=== PATIENT | male | born 2000 | race Caucasian/White ===

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

== ENCOUNTER → 2019-06-25 | Outpatient (CLI) | payer OTHER ==
[~2019-06-25] MED LIST: PSEU1TAB3 PO
--- NOTE | 2019-06-25 12:28 | REP ---
Clinical: Left shoulder pain . Technique: Internal rotation, external rotation, and Y view left shoulder . Findings: No acute fracture or dislocation. The acromioclavicular and glenohumeral joints are intact. No periarticular calcifications or degenerative changes are appreciated. Sub acromial space is normal. Surrounding soft tissues are unremarkable. Impression: Normal left shoulder radiographs. Electronically Signed by Kenneht Aguilar MD 06/25/2019 12:19 P
== END ==
LOC: M ADAMS 12:05
PROVIDERS: ATTEND Physician Assistant
DX: M25.512 Pain in left shoulder (principal)

== ENCOUNTER → 2020-01-01 | Outpatient (REF) | payer OTHER ==
[2020-01-01 19:49] LABS: BASO % 0.4 % (0.0-1.0); EOS # 0.1 10^3/uL (0.0-0.5); EOS % 0.9 % (0.0-3.0); HEMATOCRIT 46.9 % (42.0-52.0); HEMOGLOBIN 15.2 g/dl (13.5-17.5); LYMPH # 1.7 10^3/uL (1.5-5.0); LYMPH % 21.5 % (24.0-44.0); MEAN CORPUSCULAR HEMOGLOBIN 29.3 pg (27.0-33.0); MEAN CORPUSCULAR HGB CONC 32.4 g/dl (32.0-36.5); MEAN CORPUSCULAR VOLUME 90.5 fl (80.0-96.0); MONO # 0.4 10^3/uL (0.0-0.8); MONO % 4.8 % (0.0-5.0); NEUTROPHILS # 5.8 10^3/uL (1.5-8.5); NEUTROPHILS % 72.1 % (36.0-66.0); PLATELET COUNT, AUTOMATED 309 10^3/uL (150-450); RED BLOOD COUNT 5.18 10^6/uL (4.30-6.10)
[2020-01-01 20:25] LABS: ALBUMIN 4.3 GM/DL (3.2-5.2); ALT/SGPT 27 U/L (12-78); BILIRUBIN,TOTAL 0.2 MG/DL (0.2-1.0); BLOOD UREA NITROGEN 14 MG/DL (7-18); CALCIUM LEVEL 9.4 MG/DL (8.5-10.1); CARBON DIOXIDE LEVEL 30 MEQ/L (21-32); CHLORIDE LEVEL 103 MEQ/L (98-107); CHOLESTEROL LEVEL 184 MG/DL (<200); CREATININE FOR GFR 0.98 MG/DL (0.70-1.30); FREE T4 1.12 NG/DL (0.78-1.33); GLUCOSE, FASTING 104 MG/DL (70-100); HDL CHOLESTEROL 42 MG/DL (>40); LDL CHOLESTEROL 98 MG/DL (<100); NON-HDL-C 142 MG/DL; POTASSIUM SERUM 3.6 MEQ/L (3.5-5.1); SODIUM LEVEL 140 MEQ/L (136-145); TOTAL PROTEIN 7.5 GM/DL (6.4-8.2); TRIGLYCERIDES LEVEL 222 MG/DL (<150)
[2020-01-01 20:27] LABS: TESTOSTERONE 415 NG/DL (241-827); TOTAL 25(OH) VITAMIN D 17.6 NG/ML (30.0-100.0)
== END ==
LOC: M LABDRWAD 19:26
PROVIDERS: ATTEND Physician Assistant Medical
DX: R53.83 Other fatigue (principal); I10 Essential (primary) hypertension; Z13.220 Encounter for screening for lipoid disorders

== ENCOUNTER 2020-01-09 17:51 | Emergency (ER) | payer OTHER ==
[~2020-01-09] VITALS: Ht 182.9 cm; Wt 82.2 kg
[2020-01-09 17:52] VITALS: BP 136/60
[2020-01-09] MEDS ORDERED: EXCEDRIN (18:00)
[2020-01-09 19:22] LABS: INFLUENZA A AMPLIFICATION NEGATIVE (NEGATIVE); INFLUENZA B AMPLIFICATION POSITIVE (NEGATIVE)
[2020-01-09] MEDS ORDERED: VENTAER INH (19:24)
[2020-01-09] MEDS ORDERED: BENZ200C70 PO (19:24)
[2020-01-09] MEDS ORDERED: IBUP-1022 PO (19:24)
== END 2020-01-09 21:00 | disposition home or self-care (01) ==
LOC: M ED 17:51
DX: J10.1 Influenza due to other identified influenza virus with other respiratory manifestations (principal)

== ENCOUNTER 2020-01-13 21:45 | Emergency (ER) | payer OTHER ==
[~2020-01-13] VITALS: Ht 182.9 cm; Wt 80.3 kg
[~2020-01-13 21:45] MED LIST changes: +BENZ200C70 PO; +EXCEDRIN; +IBUP-1022 PO; +VENTAER INH
[2020-01-13 21:47] VITALS: BP 139/74
[2020-01-13] MEDS ORDERED: AUGM875T28 PO (22:52)
[2020-01-13] MEDS ORDERED: CIPRHCOTIC AD (22:52)
[2020-01-13] MEDS ORDERED: AUGMENTIN 875 MG TAB PO ONE (23:00)
[2020-01-13] MEDS ORDERED: CIPROFLOXACIN HC OTIC SUSPENSION AD ONE (23:00)
== END 2020-01-13 23:02 | disposition home or self-care (01) ==
LOC: M ED 21:45
DX: H66.011 Acute suppurative otitis media with spontaneous rupture of ear drum, right ear (principal)

== ENCOUNTER 2020-11-18 06:01 | Emergency (ER) | payer OTHER ==
[~2020-11-18] VITALS: Ht 182.9 cm; Wt 81.4 kg
[~2020-11-18 06:01] MED LIST changes: +AUGM875T28 PO; +CIPRHCOTIC AD
--- NOTE | 2020-11-18 07:18 | REPVR ---
PROCEDURE INFORMATION: Exam: XR Left Elbow Exam date and time: 11/18/2020 6:52 AM Age: 19 years old Clinical indication: Pain; Elbow; Left; Additional info: Trauma TECHNIQUE: Imaging protocol: XR Left elbow. Views: 3 or more views. COMPARISON: No relevant prior studies available. FINDINGS: Bones/joints: Normal. Soft tissues: Normal. IMPRESSION: No acute findings. Electronically signed by: Baltazar Hernandez On 11/18/2020 07:18:21 AM
--- NOTE | 2020-11-18 07:19 | REPVR ---
PROCEDURE INFORMATION: Exam: XR Thoracic Spine, 3 Views Exam date and time: 11/18/2020 6:52 AM Age: 19 years old Clinical indication: Pain in thoracic spine; Other: Fall injury; Additional info: Trauma, compression forces TECHNIQUE: Imaging protocol: XR of the thoracic spine, 3 views. COMPARISON: No relevant prior studies available. FINDINGS: Bones/joints: There is an S shaped scoliosis of the thoracic spine, convex to the left superiorly and convex to the right inferiorly. There is preservation of vertebral body height and disc space height. Soft tissues: Unremarkable. IMPRESSION: No acute thoracic. Electronically signed by: Baltazar Hernandez On 11/18/2020 07:19:31 AM
[2020-11-18] MEDS ORDERED: CYCL-707 PO (07:49)
[2020-11-18] MEDS ORDERED: NAPR-837 PO (07:49)
[2020-11-18 08:02] VITALS: BP 134/72
== END 2020-11-18 08:03 | disposition home or self-care (01) ==
LOC: M ED 06:01
DX: S23.3XXA Sprain of ligaments of thoracic spine, initial encounter (principal); S53.402A Unspecified sprain of left elbow, initial encounter; W00.1XXA Fall from stairs and steps due to ice and snow, initial encounter; Y92.9 Unspecified place or not applicable; Y93.9 Activity, unspecified; Y99.9 Unspecified external cause status

== ENCOUNTER 2020-12-19 23:14 | Emergency (ER) | payer OTHER ==
[~2020-12-19] VITALS: Ht 182.9 cm; Wt 79.7 kg
[~2020-12-19 23:14] MED LIST changes: +CYCL-707 PO; +NAPR-837 PO
[2020-12-19] MEDS ORDERED: KP F1200 PO (23:20)
--- OUTSIDE RECORDS SUMMARY | 2020-12-19 23:22 | CCD ---
Author Author [facility] Organization [facility] Address Unknown Phone Unavailable Care Team Providers Care Communication Lecturer Name Role Phone PETROFF, SAMEER PA Unavailable Unavailable PETROFF, SAMEER PA Unavailable Unavailable PETROFF, SAMEER PA Unavailable Unavailable PETROFF, SAMEER PA Unavailable Unavailable PETROFF, SAMEER PA Unavailable Unavailable PETROFF, SAMEER PA Unavailable Unavailable PETROFF, SAMEER PA Unavailable Unavailable PETROFF, SAMEER PA Unavailable Unavailable RING, K CHRISTAL PA Unavailable Unavailable RING, K CHRISTAL PA Unavailable Unavailable RING, K CHRISTAL PA Unavailable Unavailable RING, K CHRISTAL PA Unavailable Unavailable RING, K CHRISTAL PA Unavailable Unavailable RING, K CHRISTAL PA Unavailable Unavailable RING, K CHRISTAL PA Unavailable Unavailable RING, K CHRISTAL PA Unavailable Unavailable RING, K CHRISTAL PA Unavailable Unavailable RING, K CHRISTAL PA Unavailable Unavailable RING, K CHRISTAL PA Unavailable Unavailable RING, K CHRISTAL PA Unavailable Unavailable RING, K CHRISTAL PA Unavailable Unavailable RING, K CHRISTAL PA Unavailable Unavailable RING, K CHRISTAL PA Unavailable Unavailable RING, K CHRISTAL PA Unavailable Unavailable RING, K CHRISTAL PA Unavailable Unavailable RING, K CHRISTAL PA Unavailable Unavailable RING, K CHRISTAL PA Unavailable Unavailable RING, K CHRISTAL PA Unavailable Unavailable Re-disclosure Warning The records that you are about to access may contain information from federally-assisted alcohol or drug abuse programs. If such information is present, then the following federally mandated warning applies: This information has been disclosed to you from records protected by federal confidentiality rules (42 CFR part 2). The federal rules prohibit you from making any further disclosure of this information unless further disclosure is expressly permitted by the written consent of the person to whom it pertains or as otherwise permitted by 42 CFR part 2. A general authorization for the release of medical or other information is NOT sufficient for this purpose. The Federal rules restrict any use of the information to criminally investigate or prosecute any alcohol or drug abuse patient.The records that you are about to access may contain highly sensitive health information, the redisclosure of which is protected by Article 27-F of the [facility] Public Health law. If you continue you may have access to information: Regarding HIV / AIDS; Provided by facilities licensed or operated by the [facility] Office of Mental Health; or Provided by the [facility] Office for People With Developmental Disabilities. If such information is present, then the following [facility] mandated warning applies: This information has been disclosed to you from confidential records which are protected by state law. State law prohibits you from making any further disclosure of this information without the specific written consent of the person to whom it pertains, or as otherwise permitted by law. Any unauthorized further disclosure in violation of state law may result in a fine or custodial sentence or both. A general authorization for the release of medical or other information is NOT sufficient authorization for further disc losure. Family History Family Member Name Family Member Gender Family Member Status Date o f Status Description Data Source(s) Unknown Unknown Problem [facility] ([facility]) Encounters Encounter Providers Location Date Indications Data Source(s ) Emergency Attender: SAMEER DIOP 2019 04:10:00 PM [facility] 01/26/2020 04:13:00 PM [facility] Patient discharged. Outpatient Attender: CHRISTAL Holguin 10/29/2019 02:15:00 PM EST [facility] ([facility]) Medications Medication Brand Name Start Date Product Form Dose Route Admi nistrative Instructions Pharmacy Instructions Status Indications Reaction Description Data Source(s) Cyclobenzaprine hydrochloride 10 MG Oral Tablet CYCLOBENZAPR INE HCL 11/18/2020 12:00:00 AM EST tablet 14 TAKE ONE TABLET BY MOUTH EVERY EVENING FOR MUSCLE SPASMS TAKE ONE TABLET BY MOUTH EVERY EVENING FOR MUSCLE SPAS MS SOLD: 11/18/2020 [facility] 500 mg 11/18/2020 12:00:00 AM EST tablet 30 TAKE ONE TABLET BY MOUTH TWICE A DAY WITH FOOD TAKE ONE TABLET BY MOUTH TWICE A DAY WITH FOOD SOLD: 11/18/2020 [facility] 875-125 mg 01/14/2020 12:00:00 AM EST tablet 14 TAKE ONE TABLET BY MOUTH TWICE A DAY TAKE ONE TABLET BY MOUTH TWICE A DAY SOLD: 01/14/2020 [facility] 600 mg 01/09/2020 12:00:00 AM EST tablet 30 TAKE ONE TABLET BY MOUTH EVERY 6 HOURS NEEDED FOR PAIN TAKE ONE TABLET BY MOUTH EVERY 6 HOURS A S NEEDED FOR PAIN SOLD: 01/09/2020 [facility] 90 mcg/actuation 01/09/2020 12:00:00 AM EST HFA aerosol inha ler 18 INHALE TWO PUFFS BY MOUTH EVERY 4 TO 6 HOURS NEEDED FOR WHEEZING INHALE TWO PUFFS BY MOUTH EVERY 4 TO 6 HOURS NEEDED FOR WHEEZING SOLD: 01/09/2020 [facility] benzonatate 200 MG Oral Capsule BENZONATATE 01/09/2020 12:00:00 AM EST capsule 30 TAKE ONE CAPSULE BY MOUTH THREE TIMES A DAY NEEDED FOR COUGH TAKE ONE CAPSULE BY MOUTH THREE TIMES A DAY NEEDED FOR COUGH SOLD: 01/09/2020 [facility] Insurance Providers Payer name Policy type / Coverage type Policy ID Covered alliance party ID Covered alliance party's relationship to holliday Policy Holliday Plan Information [facility] [id number] SP [id number] [facility] O [id number] S [id number] [employer] [id number] SP [id number] [facility] [id number] CHILD [id number] [facility] Commercial [id number] Self [id number] [facility] Commercial [id number] Self [id number] [facility] Commercial [id number] Self [id number] [facility] Commercial [id number] Self [id number] [place] [facility] Commercial [id number] [facility] Commercial [id number] [employer] [facility] [id number] SP [id number] [facility] [id number] FO2 [id number] MEDICAID [id number] SP [id number] MEDICAID [id number] SP [id number] MEDICAID [id number] SP [id number] HMO BLUE [id number] SELF PAY UNAVAILABLE UNAVAILA BLE Usp [facility] Commercial Self [employer] Commercial Family Depend ent Family Health Plan Commercial [employer] Commercial Family Depend ent HEALTH[employer]/ AD O [id number] C [id number] [facility] O [id number] C [id number] Self Pay P none S none Sliding Fee Scale S None S No ne Problems, Conditions, and Diagnoses Code Display Name Description Problem Type Effective Dates Data Source(s) Y92.[address] or not applicable UNSPECIFIED PL[address] OR NOT APPLICABLE Diagnosis 01/26/2020 04:10:00 PM [facility] Y99.8 Other external cause status OTHER EXTERNAL CAUSE STATU S Diagnosis 01/26/2020 04:10:00 PM [facility] Y93.89 Activity, other specified ACTIVITY, OTHER SPECIFIED Di agnosis 01/26/2020 04:10:00 PM [facility] T15.12XA Foreign body in conjunctival sac, left e ye, initial encounter FOREIGN BODY IN CONJUNCTIVAL SAC, LEFT EYE, INIT E Diagnosis 01/26/2020 04:10: 00 PM [facility] T15.92XA Foreign body on external eye , part unspecified, left eye, initial encounter FOREIGN BODY ON EXTERNAL EYE, PART UNSP, LEFT EYE, INIT Diag nosis 01/26/2020 04:10:00 PM [facility] Surgeries/Procedures Procedure Description Date Indications Data Source(s) ECG ROUTINE ECG W/LEAST 12 LDS W/I&R 10/29/2019 12:00: 00 AM EST [facility] ([facility]) Results ID Date Data Source [id number] 01/26/2020 06:18:00 PM [facility] Patient: CARRILLO LU R eport - Physicians/[facility].VisitID: [id number] [place] [address] [phone], MRegistration Date/Time: 01/26/2020 15:26 Weight:77.1 kg (S). Height/Length:72 inches (S). BMI:23.1 FAMILY HISTORYPaternal grandfather: Cancer, Diabetes. INSTRUCTIONSYour Current Medications: .No home medication. (Electronically signed by Smaeer Humphrey P.A. 01/26/2020 18:00) Name Value Range Interpretation Code Description Data Shamika rce(s) Supporting Document(s) Procedure Vital Signs ID Date Data Source UNK Name Value Range Interpretation Code Description Data Source(s) Body mass index (BMI) [Ratio] 24.4 kg/m2 24.4 k g/m2 [facility] ([facility]) Body height 72 [in_i] 72 [in_i] [facility] ([facility], [facility]) 6'0" Body weight 180.00 [lb_av] 180.00 [lb_av] [facility] ([facility]) Body temperature 98.7 [degF] 98.7 [degF] [facility] ([facility]) Oxygen saturation in Arterial blood by Pulse oximetry 97 % 97 % [facility] ([facility]) Respiratory rate 18 /min 18 /min [facility] ( [facility]) Heart rate 82 /min 82 /min [facility] ([facility], [facility]) Diastolic blood pressure 72 mm[Hg] 72 mm[Hg] [facility] ([facility]) Systolic blood pressure 142 mm[Hg] 142 mm[Hg] [facility] ([facility])
[2020-12-20 00:49] LABS: HEMATOCRIT 47.8 % (42.0-52.0); MEAN CORPUSCULAR HEMOGLOBIN 29.9 pg (27.0-33.0); MEAN CORPUSCULAR HGB CONC 33.5 g/dl (32.0-36.5); MEAN CORPUSCULAR VOLUME 89.3 fl (80.0-96.0); PLATELET COUNT, AUTOMATED 336 10^3/uL (150-450); RED BLOOD COUNT 5.35 10^6/uL (4.30-6.10); WHITE BLOOD COUNT 6.5 10^3/uL (4.0-10.0)
[2020-12-20 01:10] LABS: AMPHETAMINES LEVEL URINE NEGATIVE (NEGATIVE); BARBITURATES URINE NEGATIVE (NEGATIVE); BENZODIAZEPINES URINE NEGATIVE (NEGATIVE); CANNABINOIDS URINE POSITIVE (NEGATIVE); COCAINE METABOLITE URINE NEGATIVE (NEGATIVE); METHADONE URINE NEGATIVE (NEGATIVE); OPIATES URINE NEGATIVE (NEGATIVE); PHENCYCLIDINE URINE NEGATIVE (NEGATIVE)
[2020-12-20 01:18] LABS: ALBUMIN 4.8 GM/DL (3.2-5.2); ALT/SGPT 25 U/L (12-78); BILIRUBIN,DIRECT 0.1 MG/DL (0.0-0.2); BILIRUBIN,TOTAL 0.5 MG/DL (0.2-1.0); BLOOD UREA NITROGEN 12 MG/DL (7-18); CARBON DIOXIDE LEVEL 32 MEQ/L (21-32); CHLORIDE LEVEL 102 MEQ/L (98-107); ETHYL ALCOHOL (ETHANOL) 0.027 % (0.000-0.010); GLUCOSE, FASTING 90 MG/DL (70-100); SALICYLATE LEVEL 3.5 MG/DL (5.0-30.0); SODIUM LEVEL 138 MEQ/L (136-145); THYROID STIMULATING HORMONE 0.603 uIU/ML (0.463-3.98); TOTAL PROTEIN 8.5 GM/DL (6.4-8.2)
[2020-12-20 01:19] LABS: ACETAMINOPHEN LEVEL < 2.0 UG/ML (10.0-30.0)
--- OUTSIDE RECORDS SUMMARY | 2020-12-20 01:46 | CCD ---
Author Author [facility] Organization [facility] Address Unknown Phone Unavailable Care Team Providers Care [employer] Supervisor Name Role Phone PETROFF, SAMEER PA Unavailable [...] is protected by Article 27-F of the [facility] Public Health law. If you continue you may have access to information: Regarding HIV / AIDS; Provided by facilities licensed or operated by the [facility] Office of Mental Health; or Provided by the [facility] Office for People With Developmental Disabilities. If such information is present, then the following [facility] mandated warning applies: This information has [...] law may result in a fine or fdc sentence or both. A general authorization for [...] Emergency Attender: SAMEER DIOP 2019 04:10:00 PM [facility] 01/26/2020 04:13:00 PM [facility] Patient discharged. Outpatient Attender: CHRISTAL Holguin 10/29/2019 02:15:00 PM EST [facility] ([facility]) Medications Medication Brand [...] relationship to holliday Policy Holliday Plan Information [facility] [id number] SP [id number] [facility] O [id number] S 0001 [id number] [facility] [id number] SP [id number] [facility] [id number] CHILD [id number] [facility] Commercial [id number] Self [id number] [facility] Commercial [id number] Self [id number] [facility] Commercial [id number] Self [id number] [facility] Commercial [id number] Self [id number] [place] [id number] [facility] [id number] [facility] [id number] SP [id number] [facility] [facility] [id number] FO2 [id number] MEDICAID [id number] SP [id number] MEDICAID [id number] SP [id number] MEDICAID [id number] SP [id number] HMO BLUE [id number] GF [id number] SELF PAY UNAVAILABLE UNAVAILA BLE Usp [facility] Commercial Self [employer] Commercial Family Depend ent Family Health Plan Commercial [employer] Commercial Family Depend ent [employer]ALTH[employer]/ AD O [id number] C [id number] [facility] O [id number] C [id number] Self Pay P none S none Sliding Fee Scale S None S No ne Problems, Conditions, and Diagnoses Code Display Name Description Problem Type Effective Dates Data Source(s) Y92.[address] or not applicable UNSPECIFIED PL[address] OR NOT APPLICABLE Diagnosis 01/26/2020 04:10:00 PM [facility] Y99.8 Other external cause status OTHER EXTERNAL CAUSE STATU S Diagnosis 01/26/2020 04:10:00 PM [facility] Y93.89 Activity, other specified ACTIVITY, OTHER SPECIFIED Di agnosis 01/26/2020 04:10:00 PM [facility] T15.12XA Foreign body in conjunctival sac, left e ye, initial encounter FOREIGN BODY IN CONJUNCTIVAL SAC, LEFT EYE, INIT E Diagnosis 01/26/2020 04:10: 00 PM [facility] T15.92XA Foreign body on external eye , part unspecified, left eye, initial encounter FOREIGN BODY ON EXTERNAL EYE, PART UNSP, LEFT EYE, INIT Diag nosis 01/26/2020 04:10:00 PM [facility] Surgeries/Procedures Procedure Description Date Indications Data Source(s) ECG ROUTINE ECG W/LEAST 12 LDS W/I&R 10/29/2019 12:00: 00 AM EST [facility] ([facility]) Results ID Date Data Source [id number] 01/26/2020 06:18:00 PM [facility] Patient: CARRILLO LU R eport - [facility].VisitID: [id number] [place] [address] [phone], MRegistration Date/Time: 01/26/2020 15:26 Weight:77.1 kg (S). Height/Length:72 inches (S). BMI:23.1 FAMILY HISTORYPaternal grandfather: Cancer, Diabetes. INSTRUCTIONSYour Current Medications: .No home medication. (Electronically signed by Sameer Humphrey P.A. 01/26/2020 18:00) Name Value Range Interpretation Code Description Data Shamika rce(s) Supporting Document(s) Procedure Vital Signs ID Date Data Source UNK Name Value Range Interpretation Code Description Data Source(s) Body mass index (BMI) [Ratio] 24.4 kg/m2 24.4 k g/m2 [facility] ([facility]) Body height 72 [in_i] 72 [in_i] [facility] ([facility], [facility]) 6'0" Body weight 180.00 [lb_av] 180.00 [lb_av] [facility] ([facility]) Body temperature 98.7 [degF] 98.7 [degF] [facility] ([facility]) Oxygen saturation in Arterial blood by Pulse oximetry 97 % 97 % [facility] ([facility]) Respiratory rate 18 /min 18 /min [facility]) Heart rate 82 /min 82 /min [facility] ([facility], [facility]) Diastolic blood pressure 72 mm[Hg] 72 mm[Hg] [facility]) Systolic blood pressure 142 mm[Hg] 142 mm[Hg] [facility])
[2020-12-20 04:58] LABS: RSV AMPLIFICATION NEGATIVE (NEGATIVE)
--- NOTE | 2020-12-20 07:08 | ECGEPIP ---
[facility] - ED Test Date: 2020-12-20 Pat Name: CARRILLO LU Department: Room: - Gender: Male Medicaid Plan Compliance Director: ty : 2000 Requested By: YAMILEX Velasquez Order Number: [id number] Reading MD: Lalo Higgins Measurements Intervals [place] Rate: 59 P: 4 HI: 180 QRS: 49 QRSD: 102 T: 12 QT: 393 QTc: 392 Interpretive Statements SINUS BRADYCARDIA INCOMPLETE RIGHT BUNDLE BRANCH BLOCK NSTTW ABNORMALITY(S) NO PRIORS FOR COMPARISON Electronically Signed on 12-20-2020 7:08:01 EST by Lalo Higgins
[2020-12-20 10:42] VITALS: BP 143/81
[2020-12-21] MEDS ORDERED: EXCETAB33 PO (00:02)
== END 2020-12-20 14:03 ==
LOC: M ED 23:14
DX: R45.851 Suicidal ideations (principal); R00.1 Bradycardia, unspecified; I45.19 Other right bundle-branch block; F17.200 Nicotine dependence, unspecified, uncomplicated; F12.10 Cannabis abuse, uncomplicated; Z79.899 Other long term (current) drug therapy
CPT/HCPCS: 36415; 80048; 80076; 80307; 84443; 85027; 87631; 93005; 99284; G0480

== ENCOUNTER 2020-12-20 21:41 | Inpatient (IN) | payer OTHER ==
[~2020-12-20] VITALS: Ht 182.9 cm; Wt 75.7 kg
[~2020-12-20 21:41] MED LIST changes: +KP F1200 PO
--- OUTSIDE RECORDS SUMMARY | 2020-12-20 21:45 | CCD ---
Author Author [facility] Organization [facility] Address Unknown Phone Unavailable Care Team Providers Care Leather Cutter Name Role Phone PETROFF, SAMEER PA Unavailable [...] Unavailable RING, K CHRISTAL PA Unavailable Unavailable SYSTEM IN, NOT IN PROVIDER Unavailable Unavailable AGATA, S TANYA MD Unavailable Unavailable AGATA, S TANYA MD Unavailable Unavailable AGATA, S TANYA MD Unavailable Unavailable AGATA, S TANYA MD Unavailable Unavailable AGATA, S TANYA MD Unavailable Unavailable AGATA, S TANYA MD Unavailable Unavailable AGATA, S TANYA MD Unavailable Unavailable AGATA, S TANYA MD Unavailable Unavailable AGATA, S TANYA MD Unavailable Unavailable AGATA, S TANYA MD Unavailable Unavailable AGAAT, S TANYA MD Unavailable Unavailable AGATA, S TANYA MD Unavailable Unavailable AGATA, S TANYA MD Unavailable Unavailable AGATA, S TANYA MD Unavailable Unavailable AGATA, S TANYA MD Unavailable Unavailable AGATA, S TANYA MD Unavailable Unavailable AGATA, S TANYA MD Unavailable Unavailable AGATA, S TANYA MD Unavailable Unavailable AGATA, S TANYA MD Unavailable Unavailable Re-disclosure Warning The records that [...] is protected by Article 27-F of the [facility] Public Health law. If you continue you may have access to information: Regarding HIV / AIDS; Provided by facilities licensed or operated by the [facility] Office of Mental Health; or Provided by the [facility] Office for People With Developmental Disabilities. If such information is present, then the following [facility] mandated warning applies: This information has [...] law may result in a fine or residential sentence or both. A general authorization for the release of medical or other information is NOT sufficient authorization for further disc losure. Family History Family Member Name Family Member Gender Family Member Status Date o f Status Description Data Source(s) Unknown Unknown Problem MEDENT ([facility]) Encounters Encounter Providers Location Date Indications Data Source(s ) Outpatient Attender: TANYA PARMAR MDAdmitt er: TANYA PARMAR MDReferrer: PROVIDER SYSTEM IN 12/20/2020 10:31:00 AM EST SI, depression [facility] SI, depression Emergency Attender: SAMEER DIOP 2019 04:10:00 PM EST - 01/26/2020 04:13:00 PM [facility] Patient discharged. Outpatient Attender: CHRISTAL Holguin 10/29/2019 02:15:00 PM EST MEDENT ([facility]) Medications Medication Brand Name Start Date Product [...] type / Coverage type Policy ID Covered constitution party ID Covered constitution party's relationship to holliday Policy Holliday Plan Information [facility] [id number] SP [id number] [facility] PL[facility] U [id number] Se lf [id number] [facility] O [id number] S 0001 [id number] [facility] [id number] SP [id number] [facility] [id number] CHILD [id number] [facility] [id number] Self [id number] [facility] Commercial [id number] Self [id number] [facility] Commercial [id number] Self [id number] [facility] Commercial [id number] Self [id number] [employer] [id number] [employer] [id number] [facility] [id number] SP [id number] [facility] [facility] [id number] FO2 [id number] MEDICAID [id number] SP [id number] MEDICAID [id number] SP [id number] MEDICAID [id number] SP [id number] O BLUE [id number] GF [id number] SELF PAY UNAVAILABLE UNAVAILA BLE [place] [employer] Self [employer] Commercial Family Depend ent [facility] Health Plan Commercial [employer] Commercial Family Depend ent [employer]ALTH[employer]/ AD O [id number] C [id number] [employer] O [id number] C [id number] Self Pay P none S none Sliding Fee Scale S None S No ne Problems, Conditions, and Diagnoses Code Display Name Description Problem Type Effective Dates Data Source(s) SI, depression SI, depression Diagnosis 12/20/2020 10:31: 00 AM [facility] Y92.[address] or not applicable UNSPECIFIED PLACE OR NOT APPLICABLE Diagnosis 01/26/2020 04:10:00 PM [facility] Y99.8 Other external cause status OTHER EXTERNAL CAUSE STATU S Diagnosis 01/26/2020 04:10:00 PM [facility] Y93.89 Activity, other specified ACTIVITY, OTHER SPECIFIED Di agnosis 01/26/2020 04:10:00 PM [facility] T15.12XA Foreign body in conjunctival sac, left e ye, initial encounter FOREIGN BODY IN CONJUNCTIVAL SAC, LEFT EYE, INIT E Diagnosis 01/26/2020 04:10: 00 PM [facility] T15.92XA Foreign body on external eye , part unspecified, left eye, initial encounter FOREIGN BODY ON EXTERNAL EYE, PART UNSP, LEFT EYE, INIT Diag nosis 01/26/2020 04:10:00 PM [facility] Surgeries/Procedures Procedure Description Date Indications Data Source(s) ECG ROUTINE ECG W/LEAST 12 LDS W/I&R 10/29/2019 12:00: 00 AM EST MEDENT ([facility]) Results ID Date Data Source [id number] 01/26/2020 06:18:00 PM [facility] l Patient: CARRILLO LU Anton Pryor eport - [facility]icians[facility].VisitID: [id number] [place] [address] [phone], MRegistration Date/Time: 01/26/2020 15:26 Weight:77.1 kg (S). [...] [Ratio] 24.4 kg/m2 24.4 k g/m2 MEDENT ([facility]) Body height 72 [in_i] 72 [in_i] MEDENT ([facility]) 6'0" Body weight 180.00 [lb_av] 180.00 [lb_av] MEDEN T ([facility], [facility]) Body temperature 98.7 [degF] 98.7 [degF] [facility]) Oxygen saturation in Arterial blood by Pulse oximetry 97 % 97 % [facility] ([facility], [facility]) Respiratory rate 18 /min 18 /min [facility] ( [facility], [facility]) Heart rate 82 /min 82 /min [facility] ([facility]) Diastolic blood pressure 72 mm[Hg] 72 mm[Hg] [facility] ([facility]) Systolic blood pressure 142 mm[Hg] 142 mm[Hg] [facility]) ID Date Data Source [id number] 12/20/2020 05:01:15 PM [facility] Hospital Name Value Range Interpretation Code Description Data Source(s) TRANSFER FROM [facility]
[2020-12-20] MEDS ORDERED: IPRATROPIUM 0.5MG/ALBUTEROL 2.5MG INH SOL UD 3ML (DUONEB) NEB ONE (22:15)
[2020-12-20 22:37] LABS: HEMATOCRIT 46.1 % (42.0-52.0); HEMOGLOBIN 15.2 g/dl (13.5-17.5); MEAN CORPUSCULAR HEMOGLOBIN 29.5 pg (27.0-33.0); MEAN CORPUSCULAR VOLUME 89.3 fl (80.0-96.0); PLATELET COUNT, AUTOMATED 318 10^3/uL (150-450); RED BLOOD COUNT 5.16 10^6/uL (4.30-6.10); WHITE BLOOD COUNT 14.6 10^3/uL (4.0-10.0)
--- OUTSIDE RECORDS SUMMARY | 2020-12-20 22:48 | CCD ---
Author Author [facility] Organization [facility] Address Unknown Phone Unavailable Care Team Providers Care Hemstitching Machine Operator Name Role Phone PETROFF, SAMEER PA Unavailable [...] is protected by Article 27-F of the [facility] Public Health law. If you continue you may have access to information: Regarding HIV / AIDS; Provided by facilities licensed or operated by the [facility] Office of Mental Health; or Provided by the [facility] Office for People With Developmental Disabilities. If such information is present, then the following [facility] mandated warning applies: This information has been [...] law may result in a fine or skilled nursing sentence or both. A general authorization for the release of medical or other information is NOT sufficient authorization for further disc losure. Family History Family Member Name Family Member Gender Family Member Status Date o f Status Description Data Source(s) Unknown Unknown Problem MEDENT ([facility]) Encounters Encounter Providers Location Date Indications Data Source(s ) Outpatient Attender: TANYA PARMAR MDAdmitt er: TANYA PARMAR MDReferrer: PROVIDER SYSTEM IN 12/20/2020 10:31:00 AM EST SI, depression [facility] SI, depression Emergency Attender: SAMEER DIOP 2019 04:10:00 PM EST - 01/26/2020 04:13:00 PM [facility] Patient discharged. Outpatient Attender: CHRISTAL Holguin 10/29/2019 02:15:00 PM EST MEDENT ([facility]) Medications Medication Brand Name Start Date [...] type / Coverage type Policy ID Covered green party ID Covered green party's relationship to holliday Policy Holliday Plan Information [facility] [id number] SP [id number] [facility] U [id number] Se lf [id number] [facility] O [id number] S 0001 [id number] [facility] [id number] SP [id number] [facility] [id number] CHILD [id number] [facility] Commercial [id number] Self [id number] [facility] Commercial [id number] Self [id number] [facility] Commercial [id number] Self [id number] [facility] Commercial [id number] Self [id number] [employer] [id number] [employer] [id number] [facility] [id number] SP [id number] [facility] [id number] FO2 [id number] MEDICAID [id number] SP [id number] MEDICAID [id number] SP [id number] MEDICAID [id number] SP [id number] O BLUE [id number] GF [id number] SELF PAY UNAVAILABLE UNAVAILA BLE [place] [employer] Self [employer] Commercial Family Depend ent [facility] Health Plan Commercial [employer] Commercial Family Depend ent [employer]/ AD O [id number] C [id number] [facility] O [id number] C [id number] Self Pay P none S none Sliding Fee Scale S None S No ne Problems, Conditions, and Diagnoses Code Display Name Description Problem Type Effective Dates Data Source(s) SI, depression SI, depression Diagnosis 12/20/2020 10:31: 00 AM [facility] Y92.[address] or not applicable UNSPECIFIED PLACE OR NOT APPLICABLE Diagnosis 01/26/2020 04:10:00 PM [facility] Y99.8 Other external cause status OTHER EXTERNAL CAUSE STATU S Diagnosis 01/26/2020 04:10:00 PM [facility] Y93.89 Activity, other specified ACTIVITY, OTHER SPECIFIED Di agnosis 01/26/2020 04:10:00 PM [facility] T15.12XA Foreign body in conjunctival sac, left e ye, initial encounter FOREIGN BODY IN CONJUNCTIVAL SAC, LEFT EYE, INIT E Diagnosis 01/26/2020 04:10: 00 PM [facility] T15.92XA Foreign body on external eye , part unspecified, left eye, initial encounter FOREIGN BODY ON EXTERNAL EYE, PART UNSP, LEFT EYE, INIT Diag nosis 01/26/2020 04:10:00 PM [facility] Surgeries/Procedures Procedure Description Date Indications Data Source(s) ECG ROUTINE ECG W/LEAST 12 LDS W/I&R 10/29/2019 12:00: 00 AM EST MEDENT ([facility], [facility]) Results ID Date Data Source [id number] 01/26/2020 06:18:00 PM [facility] l Patient: CARRILLO LU Anton Pryor eport - [facility].VisitID: [id number] [place] [address] [phone], MRegistration Date/Time: 01/26/2020 15:26 Weight:77.1 kg (S). [...] [Ratio] 24.4 kg/m2 24.4 k g/m2 MEDENT ([facility], [facility]) Body height 72 [in_i] 72 [in_i] MEDENT ([facility], [facility]) 6'0" Body weight 180.00 [lb_av] 180.00 [lb_av] MEDEN T ([facility], [facility]) Body temperature 98.7 [degF] 98.7 [degF] [facility] Oxygen saturation in Arterial blood by Pulse oximetry 97 % 97 % [facility] ([facility], [facility]) Respiratory rate 18 /min 18 /min [facility] ( [facility], [facility]) Heart rate 82 /min 82 /min [facility] ([facility], [facility]) Diastolic blood pressure 72 mm[Hg] 72 mm[Hg] [facility] ([facility], [facility]) Systolic blood pressure 142 mm[Hg] 142 mm[Hg] [facility]) ID Date Data Source [id number] 12/20/2020 05:01:15 PM [facility] Hospital Name Value Range Interpretation Code Description Data Source(s) TRANSFER FROM [facility]
[2020-12-20 23:02] LABS: AMPHETAMINES LEVEL URINE NEGATIVE (NEGATIVE); BARBITURATES URINE NEGATIVE (NEGATIVE); BENZODIAZEPINES URINE NEGATIVE (NEGATIVE); CANNABINOIDS URINE POSITIVE (NEGATIVE); COCAINE METABOLITE URINE NEGATIVE (NEGATIVE); METHADONE URINE NEGATIVE (NEGATIVE); OPIATES URINE NEGATIVE (NEGATIVE); PHENCYCLIDINE URINE NEGATIVE (NEGATIVE)
--- NOTE | 2020-12-20 23:04 | REPVR ---
PROCEDURE INFORMATION: Exam: XR Chest, 2 Views Exam date and time: 12/20/2020 10:06 PM Age: 19 years old Clinical indication: Chest pain; Type not specified; Additional info: Wheezing TECHNIQUE: Imaging protocol: XR of the chest Views: 2 views. COMPARISON: No relevant prior studies available. FINDINGS: Lungs: Unremarkable. No consolidation. Pleural spaces: Unremarkable. No pleural effusion. No pneumothorax. Heart/Mediastinum: Unremarkable. No cardiomegaly. Bones/joints: Unremarkable. IMPRESSION: No acute infiltrates. Electronically signed by: Jessenia Lott On 12/20/2020 23:04:16 PM
[2020-12-20 23:32] LABS: ACETAMINOPHEN LEVEL < 2.0 UG/ML (10.0-30.0); ALBUMIN 4.5 GM/DL (3.2-5.2); ALT/SGPT 24 U/L (12-78); BILIRUBIN,DIRECT 0.2 MG/DL (0.0-0.2); BILIRUBIN,TOTAL 0.7 MG/DL (0.2-1.0); BLOOD UREA NITROGEN 12 MG/DL (7-18); CALCIUM LEVEL 9.6 MG/DL (8.5-10.1); CARBON DIOXIDE LEVEL 31 MEQ/L (21-32); CHLORIDE LEVEL 101 MEQ/L (98-107); CREATININE FOR GFR 1.15 MG/DL (0.70-1.30); ETHYL ALCOHOL (ETHANOL) < 0.003 % (0.000-0.010); GLUCOSE, FASTING 133 MG/DL (70-100); POTASSIUM SERUM 3.9 MEQ/L (3.5-5.1); SODIUM LEVEL 139 MEQ/L (136-145); THYROID STIMULATING HORMONE 0.389 uIU/ML (0.463-3.98); TOTAL PROTEIN 7.8 GM/DL (6.4-8.2)
[2020-12-21] MEDS ORDERED: OLANZapine ORAL DISINTEGRATING TAB 5MG PO ONE
[2020-12-21] MEDS ORDERED: ACETAMINOPHEN TAB 650MG DOSE (2X325MG) PO PRN
[2020-12-21] MEDS ORDERED: MAALOX 30 ML SUSP *UDC PO PRN
[2020-12-21] MEDS ORDERED: traZODone 50 MG TAB PO PRN
[2020-12-21] MEDS ORDERED: MOM 30ML SUSPENSION UDC PO PRN
[2020-12-21] MEDS ORDERED: EXCETAB33 PO (00:02)
--- OUTSIDE RECORDS SUMMARY | 2020-12-21 00:14 | CCD ---
Author Author [facility] Organization [facility] Address Unknown Phone Unavailable Care Team Providers Care Election Judge Name Role Phone PETROFF, SAMEER PA Unavailable [...] K CHRISTAL PA Unavailable Unavailable RING, K CHRISTLA PA Unavailable Unavailable RING, K CHRISTAL PA [...] protected by Article 27-F of the [facility] Public Health law. If you continue you may have access to information: Regarding HIV / AIDS; Provided by facilities licensed or operated by the [facility] Office of Mental Health; or Provided by the [facility] Office for People With Developmental Disabilities. If such information is present, then the following [facility] mandated warning applies: This information has [...] law may result in a fine or fpc sentence or both. A general authorization for the release of medical or other information is NOT sufficient authorization for further disc losure. Family History Family Member Name Family Member Gender Family Member Status Date o f Status Description Data Source(s) Unknown Unknown Problem MEDENT ([facility]) Encounters Encounter Providers Location Date Indications Data Source(s ) Outpatient Attender: TANYA PARMAR MDAdmitt er: TANYA PARMAR MDReferrer: PROVIDER SYSTEM IN 12/20/2020 10:31:00 AM EST SI, depression [facility] SI, depression Emergency Attender: SAMEER DIOP 2019 04:10:00 PM EST - 01/26/2020 04:13:00 PM [facility] Patient discharged. Outpatient Attender: CHRISTAL Holguin 10/29/2019 02:15:00 PM EST MEDENT ([facility], [facility]) Medications Medication Brand Name Start Date Product [...] type / Coverage type Policy ID Covered republican ID Covered republican's relationship to holliday Policy Holliday Plan Information [facility] [id number] SP [id number] [facility] PLAN U [id number] Se lf [id number] [facility] O [id number] S 0001 [id number] [facility] [id number] SP [id number] [facility] [id number] CHILD [id number] [facility] Commercial [id number] Self [id number] [facility] Commercial [id number] Self [id number] [facility] Commercial [id number] Self [id number] [facility] Commercial [id number] Self [id number] [employer]s [employer] [id number] [employer] [id number] [facility] [id number] SP [id number] [facility] [facility] [id number] FO2 [id number] MEDICAID [id number] SP [id number] MEDICAID [id number] SP [id number] MEDICAID [id number] SP [id number] O BLUE [id number] GF [id number] SELF PAY UNAVAILABLE UNAVAILA BLE [place] Commercial Self [employer] Commercial Family Depend ent [facility] Health Plan Commercial [employer] Commercial Family Depend ent HEALTH[employer]/ AD O [id number] C [id number] [facility] O [id number] C [id number] Self Pay P none S none Sliding Fee Scale S None S No ne Problems, Conditions, and Diagnoses Code Display Name Description Problem Type Effective Dates Data Source(s) SI, depression SI, depression Diagnosis 12/20/2020 10:31: 00 AM [facility] Y92.[address] or not applicable UNSPECIFIED PLACE OR NOT APPLICABLE Diagnosis 01/26/2020 04:10:00 PM [facility] Y99.8 Other external cause status OTHER EXTERNAL CAUSE STATU S Diagnosis 01/26/2020 04:10:00 PM [facility] Y93.89 Activity, other specified ACTIVITY, OTHER SPECIFIED Di agnosis 01/26/2020 04:10:00 PM [facility] T15.12XA Foreign body in conjunctival sac, left e ye, initial encounter FOREIGN BODY IN CONJUNCTIVAL SAC, LEFT EYE, INIT E Diagnosis 01/26/2020 04:10: 00 PM [facility] T15.92XA Foreign body on external eye , part unspecified, left eye, initial encounter FOREIGN BODY ON EXTERNAL EYE, PART UNSP, LEFT EYE, INIT Diag nosis 01/26/2020 04:10:00 PM [facility] Surgeries/Procedures Procedure Description Date Indications Data Source(s) ECG ROUTINE ECG W/LEAST 12 LDS W/I&R 10/29/2019 12:00: 00 AM EST MEDENT ([facility], [facility]) Results ID Date Data Source [id number] 01/26/2020 06:18:00 PM [facility] l Patient: CARRILLO LU Anton Pryor eport - Physicians/Mid Levels [facility].VisitID: [id number] [place] [address] [phone], MRegistration Date/Time: 01/26/2020 15:26 Weight:77.1 kg (S). [...] [Ratio] 24.4 kg/m2 24.4 k g/m2 MEDENT ([facility], [facility]) Body height 72 [in_i] 72 [in_i] MEDENT ([facility], [facility]) 6'0" Body weight 180.00 [lb_av] 180.00 [lb_av] MEDEN T ([facility], [facility]) Body temperature 98.7 [degF] 98.7 [degF] [facility] Oxygen saturation in Arterial blood by Pulse oximetry 97 % 97 % [place] ([facility], [facility]) Respiratory rate 18 /min 18 /min [place] ( [facility]) Heart rate 82 /min 82 /min [place] ([facility], [facility]) Diastolic blood pressure 72 mm[Hg] 72 mm[Hg] [place] ([facility], [facility]) Systolic blood pressure 142 mm[Hg] 142 mm[Hg] [facility]) ID Date Data Source [id number] 12/20/2020 05:01:15 PM [facility] Hospital Name Value Range Interpretation Code Description Data Source(s) TRANSFER FROM [facility]
[2020-12-21 01:15] VITALS: BP 129/82
[2020-12-21 06:45] VITALS: BP 135/72
[2020-12-21] MEDS: NICOTINE 21MG/24HR 1 EA TRANSDERMAL TD SCH (09:00)
[2020-12-21] MEDS ORDERED: SERTRALINE HCL 50 MG TAB PO SCH (09:00)
--- NOTE | 2020-12-21 11:30 | HPEPDOC ---
[facility] Medical History & Physical Date of Admission Dec 21, 2020 Date of Service: Dec 21, 2020 History and Physical CHIEF COMPLAINT: Medical evaluation HISTORY OF PRESENT ILLNESS: 19-year-old male with no known past medical history admitted to the inpatient mental health unit. I am asked to provide a medical assessment of patient admitted to the psychiatric unit. My assessment is limited to medical problems and does not address any psychiatric problems which is deferred to the in-house psychiatrist. Patient tells me that he lied to the ED staff and told him he had suicidal ideations whereas in fact he just wanted to see a therapist before his insurance runs out on his birthday coming up and was unable to get a sooner appointment. He tells me he's been having trouble with trust issues with his girlfriend. He otherwise feels well and denies any complaints. 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 REVIEW OF SYSTEMS: 10 point review of systems complete all negative otherwise stated in HPI HOME MEDICATIONS: Please see below. PHYSICAL EXAMINATION: Constitutional: Awake and alert, in no apparent distress ENT: Sclera are clear. Mucosa is moist. Respiratory: Lungs mild wheezing bilaterally. No respiratory distress. No use of accessory muscles. Cardiovascular: RRR S1 and S2 are normal, no murmur Gastrointestinal: Abdomen is soft, non distended, non tender, BS present. Musculoskeletal: No lower extremity edema. RUE 5/5, LUE 5/5, BLE 5/5 Neurologic: No focal neurological deficit. Mental Status: A&O x3, normal affect Skin: Warm, dry LABORATORY DATA: See below. IMAGING: See chart MICROBIOLOGY: Please see below. ASSESSMENT/PLAN 19-year-old male admitted to the inpatient psychiatric unit who I saw for medical evaluation # Possible suicidal ideation: Per psychiatry # Asthma: Perhaps patient has a mild asthma exacerbation with some mild wheezing although he denies being short of breath this could be related to him walking without his clothes for 50 miles in the cold last night which could've exacerbated his asthma. I ordered albuterol inhaler to be used as needed. A Yousef Hospitalist Vital Signs Vital Signs Date Time Temp Pulse Resp B/P (MAP) Pulse Ox O2 Delivery O2 Flow Rate FiO2 12/21/20 10:04 Room Air 12/21/20 06:45 98.4 74 16 135/72 (93) 98 Laboratory Data Labs 24H Laboratory Tests 2 12/20/20 22:22: Urine Opiates Screen NEGATIVE, Urine Methadone Screen NEGATIVE, Urine Barbiturates Screen NEGATIVE, Urine Phencyclidine Screen NEGATIVE, Urine Amphetamines Screen NEGATIVE, Urine Benzodiazepines Screen NEGATIVE, Urine Cocaine Metabolite Screen NEGATIVE, Urine Cannabinoids Screen POSITIVEH 12/20/20 22:23: Nucleated Red Blood Cells % (auto) 0.0, Anion Gap 7L, Calcium Level 9.6, Total Bilirubin 0.7, Direct Bilirubin 0.2, Aspartate Amino Transf (AST/SGOT) 20, Alanine Aminotransferase (ALT/SGPT) 24, Alkaline Phosphatase 99, Total Protein 7.8, Albumin 4.5, Albumin/Globulin Ratio 1.4, Thyroid Stimulating Hormone (TSH) 0.389L, Salicylates Level 2.0L, Acetaminophen Level < 2.0L, Ethyl Alcohol Level < 0.003 CBC/BMP Laboratory Tests 12/20/20 22:23 Home Medications Scheduled Fish Oil/Dha/Epa (Fish Oil 1,200 mg Fish Oil) 1 Each Capsule, 2 CAP PO DAILY Scheduled PRN Aspirin/Acetaminophen/Caffeine (Excedrin Migraine Caplet) 1 Each Tablet, 1 TAB PO DAILY PRN for HEADACHE Allergies Coded Allergies: No Known Allergies (Unverified , 12/10/18) A-FIB/CHADSVASC A-FIB History Current/History of A-Fib/PAF?: No YOLANDA DEMPSEY MD Dec 21, 2020 11:30
[2020-12-21] MEDS: ALBUTEROL 90 MCG/ACT 8GM HFA INHALER INH PRN ×2 (15:08→21:12)
[2020-12-21 18:11] VITALS: BP 132/80
--- NOTE | 2020-12-21 19:00 | MHHPEPDOC ---
General Date Of Admission: Dec 21, 2020 Legal Status: 9.39 Chief Complaint "I said I was suicidal because I needed to get therapy".------Patient was evaluated using ZOOM du to Coronavirus pandemic History of Present Illness HISTORY OF THE PRESENT ILLNESS: Patient is a 19 -year-old , male, who as per ED reports: "Reason for Referral PT eloped this morning a berry picker order was placed. PT stated he only came back "to man up" because he left without being discharged. Chief Complaint PT oriented x3 and cooperative. PT seemed restless. PT at this time denies SI, HI, AH, VH or self-injurious behaviors. Pt reported wanting to see a therapist to process relationship "trust issues" that PT is having with PT's girlfriend but the waiting list to see a therapist is "very long". Pt stated he came to [facility] ED this morning [12/20/2020] because his mother told him if he stated he was suicidal, he would be able to get a therapist sooner. PT stated leaving the ER this morning because, he became inpatient and did not need to be here [referring to [facility] ED]. When PT eloped this morning a berry picker order was placed. PT stated he only came back "to man up" because he left without being discharged. PT repeatedly stated not having SI and not having a plan to commit suicide. PT stated looking forwards to next week to finish his tattoo on his right arm. PT stated having a loving family and having "two good friends". PT stated talking with his grandfather who is a extruding press adjuster and believing in God. PT denied consent speak with parents." Psychiatric Review of Systems Depression (2 or more weeks): denies, other (The patient is not cooperative with interview, he repeatedly says he wants to leave, says that someone told him [facility] play writer would probably let him go home. ) Magali (4 or more days of): irritable/elevated mood (He says he can be irritable, he has a h/o going to therapy as a child because he was "angry"), denies Psychosis: denies PTSD: denies Anxiety: situational anxiety (he says he doesn't like people, he tries to avoid them. He adds: " I don't liek people". He reports social anxiety symptoms but he says that even when he gets anxious with new people, places and situations, he is still able to interact at those times) Anxiety/ 6 months or more of: restlessness, keyed up, irritability Past Psychiatric History Previous Psychiatric Diagnosis: He went to therapy when he was younger ( he was 9) and his mother took him to therapy because he got very angry Previous Psychiatric Admissions: Denies Suicide Attempts: Denies Psychiatric Follow-up: Denies Psychiatric medications: Denies Past Medical History Medical Problems Denies Head Injury: No Seizures: No Hospitalizations: No Surgeries: No Family Medical/Psychiatric HX Medical Problems Denies Psychiatric Disorders: No Addiction: No Suicide Attemps/Completions: No Addiction History nicotine, alcohol (every Wednesday), other (marijuana, daily) Social History Childhood: Mom and dad split when he was very young. He says he got 7 siblings, 2 of them are full blooded, the rest are half siblings Abuse/Trauma: Denies Current Living Situation: Lives by himself Education: Finished HS Employment: Employed Social Support: "everyone I talk to" Legal: Yes, I guess, "a couple oj [employer] stuff" Marital: Single, no children Mental Status Examination General Appearance: well groomed, appears stated age, hospital scubs/clothing Build: average Demeanor: hostile, mistrustful, very figety Eye Contact: intense Activity: anxious Behavior: uncooperative, resistant, restless Speech: clear, spontaneous, reg/rate,rhythm,volume Mood: anxious, angry, irritable Mood Irritable/angry Affect: labile, congruent, anxious, hostile Thought Process: logical/linear Thought Content (Delusions): none reported Thought Content (Other): none reported Thought Content (Aggressive): none reported Perception (Hallucinations): none reported Perception (Other): none reported Cognition (Impairment of): none reported Cognition(Intelligence Est.): average Oriented: Awake, Alert, Oriented times three Insight: poor Judgment: Poor Psychosis: Denies Diagnoses 1. Unspecified Mood Disorder 2. Marijuana use disorder A-FIB/CHADSVASC A-FIB History Current/History of A-Fib/PAF?: No Current PO Anticoag Therapy: No Age/Risk Factor Scoring CHADSVASC: CHADSVASC Response (Comments) Value Age Risk Factor Age < 65 years old 0 Gender Risk Factor Male 0 Hx of CHF No 0 Hx of HTN No 0 Hx of Stroke/TIA/or VTE No 0 Hx of Diabetes No 0 Hx of Vascular Disease No 0 Total 0 Treatment Treatment ordered: NONE Reason Anticoagulant not given: Not indicated/[id number] Assessment The patient was evaluated via ZOOM due to Coronavirus pandemic. The patient is very angry, he is irritable and he is not insightful. He says he was never suicidal, he says he came to the ED because his mother advised him to come over and say he was suicidal for him to get established with a therapist because he has been having problems with his girlfriend. He did not elaborate about those relationship problems. He minimized his symptoms possibly hoping he would be discharged if he did this but his angry mood and affect seemed to be a red flag regarding his safety even when he was denying suicidal and homicidal ideation. He mentioned he received therapy as a child because his mother thought he was an angry child and he was very vague about the amount of time he received therapy. He has low tolerance to frustration, he seems to be impulsive and aggressive. Initial Treatment Plan 1. Patient was admitted on a [9.39] status. 2. Complete history was obtained. 3. With patients permission, family will be contacted and database will be expanded. 4. Patients medication regimen will be reviewed and changed accordingly. 5. Patient will be provided with protected environment. 6. Patient will be treated with individual, group, and milieu therapies. 7. Patient will receive supportive psych-education. 8. Discharge planning will commence immediately. 9. Outpatient follow-up treatment will be strongly recommended. 10. The initial treatment plan will focus initially on: * Depression. * Risk for suicide. * Irritability * Anger * Substance abuse ESTIMATED LENGTH OF STAY: 3-5DAYS. TIME SPENT COUNSELING AND COORDINATING INITIAL CARE: 45 minutes. Vital Signs Vital Signs Date Time Temp Pulse Resp B/P (MAP) Pulse Ox O2 Delivery O2 Flow Rate FiO2 12/21/20 10:04 Room Air 12/21/20 06:45 98.4 74 16 135/72 (93) 98 Laboratory Data 24H Labs Laboratory Tests 2 12/20/20 22:22: Urine Opiates Screen NEGATIVE, Urine Methadone Screen NEGATIVE, Urine Barbiturates Screen NEGATIVE, Urine Phencyclidine Screen NEGATIVE, Urine Amphetamines Screen NEGATIVE, Urine Benzodiazepines Screen NEGATIVE, Urine C ocaine Metabolite Screen NEGATIVE, Urine Cannabinoids Screen POSITIVEH 12/20/20 22:23: Nucleated Red Blood Cells % (auto) 0.0, Anion Gap 7L, Calcium Level 9.6, Total Bilirubin 0.7, Direct Bilirubin 0.2, Aspartate Amino Transf (AST/SGOT) 20, Alanine Aminotransferase (ALT/SGPT) 24, Alkaline Phosphatase 99, Total Protein 7.8, Albumin 4.5, Albumin/Globulin Ratio 1.4, Thyroid Stimulating Hormone (TSH) 0.389L, Salicylates Level 2.0L, Acetaminophen Level < 2.0L, Ethyl Alcohol Level < 0.003 CBC/BMP Laboratory Tests 12/20/20 22:23 Medications Scheduled Fish Oil/Dha/Epa (Fish Oil 1,200 mg Fish Oil) 1 Each Capsule, 2 CAP PO DAILY, (Reported) Scheduled PRN Aspirin/Acetaminophen/Caffeine (Excedrin Migraine Caplet) 1 Each Tablet, 1 TAB PO DAILY PRN for HEADACHE, (Reported) Allergies Coded Allergies: No Known Allergies (Unverified , 12/10/18) WALE CUEVAS MD Dec 21, 2020 12:58
[2020-12-21] MEDS ORDERED: OLANZapine 5 MG TAB PO PRN (19:15)
[2020-12-22 06:22] VITALS: BP 99/52
[2020-12-22] MEDS: ALBUTEROL 90 MCG/ACT 8GM HFA INHALER INH PRN ×3 (06:46→21:35)
[2020-12-22] MEDS: OMEGA-3 1000MG CAPSULE PO SCH (08:22)
[2020-12-22] MEDS: NICOTINE 21MG/24HR 1 EA TRANSDERMAL TD SCH (08:24)
--- NOTE | 2020-12-22 17:36 | MHIPNPDOC ---
[facility] Progress Note Progress Note DATE OF SERVICE: 12/22/20-------The patient was evaluated using ZOOM HISTORY: HISTORY OF THE PRESENT ILLNESS: Patient is a 19 -year-old , male, who as per ED reports: "Reason for Referral PT eloped this morning a worm picker order was placed. PT stated he only came back "to man up" because he left without being discharged. Chief Complaint PT oriented x3 and cooperative. PT seemed restless. PT at this time denies SI, HI, AH, VH or self-injurious behaviors. Pt reported wanting to see a therapist to process relationship "trust issues" that PT is having with PT's girlfriend but the waiting list to see a therapist is "very long". Pt stated he came to [facility] ED this morning [12/20/2020] because his mother told him if he stated he was suicidal, he would be able to get a therapist sooner. PT stated leaving the ER this morning because, he became inpatient and did not need to be here [referring to [facility] ED]. When PT eloped this morning a worm picker order was placed. PT stated he only came back "to man up" because he left without being discharged. PT repeatedly stated not having SI and not having a plan to commit suicide. PT stated looking forwards to next week to finish his tattoo on his right arm. PT stated having a loving family and having "two good friends". PT stated talking with his grandfather who is a planning specialist and believing in God. PT denied consent speak with parents." VITAL SIGNS: See below. NEW TEST RESULTS: See below CURRENT MEDICATIONS: See below. MENTAL STATUS EXAMINATION: General Appearance: well groomed, appears stated age, hospital scubs/clothing Build: average Demeanor: hostile, mistrustful, very figety Eye Contact: intense Activity: anxious Behavior: uncooperative, resistant, restless Speech: clear, spontaneous, reg/rate,rhythm,volume Mood: anxious, angry, irritable Mood Irritable/angry Affect: labile, congruent, anxious, hostile Thought Process: logical/linear Thought Content (Delusions): none reported Thought Content (Other): none reported Thought Content (Aggressive): none reported Perception (Hallucinations): none reported Perception (Other): none reported Cognition (Impairment of): none reported Cognition(Intelligence Est.): average Oriented: Awake, Alert, Oriented times three Insight: poor Judgment: Poor Psychosis: Denies Diagnoses 1. Unspecified Mood Disorder 2. Marijuana use disorder ASSESSMENT: The patient is still irritable but it is less compared to yesterday. He is still minimizing his symptoms, he denies feeling depressed or suicidal, continues to say that it was his mother who advised him to come to the ED and say he was suicidal so that he would be established with a Therapist. The patient has refused to take medications, is refusing to talk about the probolems with GF that motivated this admission. It must be noted that ED Doctor was very concerned about the patient because he had manifested suicidal ideation while he waiting to be seen at the ED and then he eloped just to come back hours later. At that alma he was denying being suicidal but the ED staff would be in his best interest to be hospitalized because of his presentation and I agreed with them, thinking it would be better to admit him in order to have him monitored. At this time, I don't think he is depressed but I believe he has anger management problems and he is impulsive. MANAGEMENT PLAN: Will continue current treatment plan. Will need conservation planner contact his family, if he has signed DEVENDRA's, to expand information TIME SPENT: 20 minutes. Vital Signs Vital Signs Date Time Temp Pulse Resp B/P (MAP) Pulse Ox O2 Delivery O2 Flow Rate FiO2 12/22/20 07:45 Room Air 12/22/20 06:22 98.3 69 16 99/52 (68) 95 Current Medications Current Medications Medications (Trade) Dose Ordered Sig/Kayla Route PRN Reason Start Time Stop Time Status Last Admin Dose Admin Acetaminophen (Tylenol Tab) 650 mg Q6HP PRN PO HEADACHE or DISCOMFORT 12/21/20 00:00 12/21/20 08:34 Al Hydrox/Mg Hydrox/Simethicone (Mylanta) 30 ml Q4HP PRN PO HEARTBURN/INDIGESTION 12/21/20 00:00 Albuterol Sulfate (Proventil, Ventolin Hfa) 2 puff Q4HP PRN INH SHORTNESS OF BREATH 12/21/20 11:30 12/22/20 06:46 Fish Oil (Ambler-3 (1000mg)) 2 cap DAILY PO 12/22/20 09:00 12/22/20 08:22 Home Med (Med Rec Complete!) ASDIRECTED XX 12/21/20 00:15 12/21/20 00:04 DC Magnesium Hydroxide (Milk Of Magnesia) 30 ml DAILYPRN PRN PO CONSTIPATION 12/21/20 00:00 Nicotine (Nicoderm Cq 21mg) 1 patch DAILY TD 12/21/20 09:00 Olanzapine (ZyPREXA) 5 mg Q6HP PRN PO AGITATION 12/21/20 19:15 Sertraline HCl (Zoloft) 50 mg DAILY PO 12/21/20 09:00 12/21/20 19:01 DC Trazodone HCl (Desyrel) 50 mg QHSP PRN PO INSOMNIA 12/21/20 00:00 Allergies Coded Allergies: No Known Allergies (Unverified , 12/10/18) WALE CUEVAS MD Dec 22, 2020 15:00
[2020-12-23] MEDS: ALBUTEROL 90 MCG/ACT 8GM HFA INHALER INH PRN ×3 (06:18→20:19)
[2020-12-23 07:07] VITALS: BP 144/84
[2020-12-23] MEDS: OMEGA-3 1000MG CAPSULE PO SCH (08:44)
[2020-12-23] MEDS: NICOTINE 21MG/24HR 1 EA TRANSDERMAL TD SCH (09:00)
[2020-12-24 06:20] VITALS: BP 134/61
[2020-12-24] MEDS: OMEGA-3 1000MG CAPSULE PO SCH (08:23)
[2020-12-24] MEDS: NICOTINE 21MG/24HR 1 EA TRANSDERMAL TD SCH (08:24)
--- NOTE | 2020-12-24 16:49 | MHDS ---
[facility] DISCHARGE SUMMARY DATE OF ADMISSION: 12/20/2020 DATE OF DISCHARGE: 12/24/2020 DISCHARGE DIAGNOSES: 1. Adjustment disorder with anxiety and depressed mood. 2. Marijuana use disorder. 3. Concerns with relationship with girlfriend. HISTORY OF PRESENT ILLNESS: He is 19 years old, and he had come in after a pickup order had been placed. This is after he had come into the hospital initially and then left without being seen, and there were concerns that he had indicated that he was suicidal. He was hospitalized. Was seen by Dr. Palm, psychiatry. Please refer to her summary for details related to the circumstance of the admission, background history, medical history, mental status exam at the time of admission. HOSPITAL COURSE: The patient indicated that he had not intended being admitted to the hospital and had said he was suicidal, as he had been informed, implied by his mother, that he would get to see a therapist sooner than otherwise. Says he wanted to have that done before he runs out of insurance on his birthday, which is in a couple days' time. Says he had been anxious relatively recently when he had been trying to reach his girlfriend that she had not answered. He had felt anxious about it. Says he has now spoken with her, and that has been sorted out. They have been together for a couple years. He lives on his own. He says she spends most of her time with him. He smokes marijuana regularly. Does not think it is a problem. While in the hospital, he was not given any scheduled medicine for anxiety/depression, as none was felt to be indicated. Had been seen by Dr. Palm in the weekend, and I was assigned to his care yesterday, December 23, when he said that he had expected he would be discharged, as he had not been suicidal, had no intentions of harming himself or anyone else, and he went into explanation of why he had been hospitalized. When seen initially, per the emergency room and initial assessment records, he was noted to be irritable, uncooperative at times. When I saw him yesterday, he was cooperative, coherent. There was no psychomotor retardation. He denied any suicidal thoughts or intents. Collateral information was obtained from his mother, his girlfriend, by staff. There were no concerns that either of them had in terms of his being safe or maintaining his safety. Mother was concerned about his moods and that he was, as she wrote, "seek assistance." Spoken of referring him for outpatient therapy. He was reluctant yesterday but more accepting of it today. When seen today, says wishes to go home and that he plans to followup with appointments to see his therapist. We also spoke of his cutting down and eliminating cannabis, and a discussion took place regarding concerns about using cannabis. He says he has not had any cravings since he has been here and is advised to refrain from using it and to seek assistance doing so. Since he no longer needs being in hospital, he is being discharged today for followup. MENTAL STATUS EXAMINATION AT THE TIME OF DISCHARGE: He is neat. He is cooperative. No agitation. No psychomotor retardation. He is coherent. Affect broad. Speech normal in amount and rate. Denies any suicidal thoughts or intents. No homicidal ideas or intents. No evidence of any psychosis. Cognition grossly intact. Judgment good. Insight possibly improved. It should also be noted, was seen by the hospitalist per routine medical examination, and there were no major concerns. He is not discharged on any scheduled medications. DISCHARGE DIAGNOSIS: As indicated above. DISPOSITION: He is being discharged home today. He is on his own. Has supports, including girlfriend and his mother. He will have appointments as scheduled, and her intends to followup with them. He is also aware of the emergency services available locally and of accessing them. The discharge process took about 30 minutes.
--- NOTE | 2020-12-26 08:29 | MHIPN ---
[facility] PROGRESS NOTE DATE: 12/23/2020 VITAL SIGNS: Blood pressure 144/84, pulse 78, temperature 98. This is a video assessment. He is seen in the presence of staff. CHIEF COMPLAINT: Says he feels okay. SUBJECTIVE: I am assigned to his care today, as the inpatient providers are not there. The patient says he has been feeling okay, and that he was hoping he would be discharged today. He had been seen over the weekend by Dr. Palm. He says he had come in as he wanted therapy, was concerned about aspects of his relationship with his girlfriend, they have been together for more than two years, says he did not come in to be admitted and denies that he was suicidal, but he was asked to come in, in this manner by his mother, hoping he would get referred to a therapist, says he did not count on being hospitalized. Says he wanted to do that, see his therapist, before he runs out of insurance on his birthday, which is in a few days time, December 26. The chart is reviewed. He was apparently picked up by the police. This is after he left the ER, without being seen, said he had left as he did not want to stay in the hospital. Says he was never suicidal, he denies that he has ever been. Says appetite has been good. Says he enjoys his work, and hopes to get out of [facility] eventually, [place]. Says he has been in touch with his mother, since he has been here, and with his girlfriend. MENTAL STATUS EXAMINATION: Neat, cooperative. No agitation. No psychomotor retardation. Coherent. Affect is reactive, is mildly anxious. Denies thoughts of harming himself or anyone else. No evidence of any psychosis. Cognition is grossly intact. His judgment is good. Insight fair. ASSESSMENT: Adjustment disorder with anxiety. Consider marijuana use disorder. He may be minimizing his symptoms, concerns, would suggest he is not suicidal and that he never was. PLAN: I would suggest corroborating the history, and consider discharging him over the next 24-48 hours, if deemed to be safe. Further recommendations will be made depending on the clinical picture. He will be seen by the assigned psychiatrist/clinician tomorrow.
== END 2020-12-24 16:20 | disposition home or self-care (01) | DRG 882 ==
LOC: M ED 21:41 → M ED INP 21:42 → M PSY 12-21 01:05
PROVIDERS: ADMIT Psychiatry & Neurology Geriatric Psychiatry; ATTEND Psychiatry & Neurology Geriatric Psychiatry
DX: F43.23 Adjustment disorder with mixed anxiety and depressed mood (principal); R45.851 Suicidal ideations; F12.90 Cannabis use, unspecified, uncomplicated; F17.210 Nicotine dependence, cigarettes, uncomplicated

== ENCOUNTER 2021-06-25 00:56 | Emergency (ER) | payer OTHER ==
[~2021-06-25] VITALS: Ht 182.9 cm; Wt 70.5 kg
[~2021-06-25 00:56] MED LIST changes: +EXCETAB33 PO
[2021-06-25 00:57] VITALS: BP 138/80
== END 2021-06-25 04:10 | disposition left against medical advice (07) ==
LOC: M ED 00:56
DX: Z53.21 Procedure and treatment not carried out due to patient leaving prior to being seen by health care provider (principal)